=== PATIENT | male | born 1970 | race Caucasian/White ===

== ENCOUNTER 2019-02-15 08:34 | Emergency (ER) | payer OTHER ==
--- NOTE | 2019-02-15 08:54 | EDM.PDOC ---
ED HPI GENERAL MEDICAL PROBLEM - General Chief Complaint: Back Pain or Injury Stated Complaint: BACK AND HIP PAIN Time Seen by Provider: 02/15/19 08:51 - History of Present Illness INITIAL COMMENTS - FREE TEXT/NARRATIVE: 48-year-old male presents emergency room back pain. This is been progressively getting worse over the last couple of days he's had low back pain going down the back of his thighs stops above the knees. No pain or tingling in his feet or lower legs. She denies any fevers or chills no burning or frequency with urination no gastrointestinal symptoms no nausea vomiting constipation diarrhea or abdominal pain. Patient is back issues in the past MRI showed what sounds like bone spurs in the past does not sound like he has any active or past history of radicular symptoms. At this point he denies any loss of bowel or bladder control. Before his back pain started the patient was getting over a sinus cold. He was coughing somewhat with this, however this is resolved but he wonders if the coughing irritated his back. Right Hip Pain Score (Numeric/FACES): 10 - Related Data Allergies Allergy/AdvReac Type Severity Reaction Status Date / Time No Known Allergies Allergy Verified 02/15/19 08:45 Home Meds: Home Meds Cyclobenzaprine [Flexeril] 10 mg PO TID #12 tab 02/15/19 [Rx] Lisinopril [Zestril] 10 mg PO DAILY 02/15/19 [History] Naproxen [Naprosyn] 500 mg PO Q12H #20 tablet 02/15/19 [Rx] Past Medical History Cardiovascular History: Reports: Hypertension Musculoskeletal History: Reports: Other (See Below) Other Musculoskeletal History: tibial fracture - Past Surgical History Musculoskeletal Surgical History: Reports: Other (See Below) Other Musculoskeletal Surgeries/Procedures:: rotator cuff Social & Family History - Tobacco Use Smoking Status *Q: Never Smoker ED ROS GENERAL - Review of Systems Review Of Systems: See Below Constitutional: Reports: No Symptoms Respiratory: Reports: No Symptoms Cardiovascular: Reports: No Symptoms GI/Abdominal: Reports: No Symptoms : Reports: No Symptoms Musculoskeletal: Reports: Back Pain Skin: Reports: No Symptoms Neurological: Reports: No Symptoms ED EXAM,LOWER BACK PAIN/INJURY - Physical Exam Exam: See Below Exam Limited By: Other (The patient is examined standing up for the most part as change of position is very difficult for him.) General Appearance: Alert, Mild Distress (From the discomfort and inability to get into a comfortable position) Head: Atraumatic, Normocephalic Neck: Normal Inspection, Supple, Non-Tender, Full Range of Motion Respiratory/Chest: No Respiratory Distress, Lungs Clear, Normal Breath Sounds, No Accessory Muscle Use, Chest Non-Tender Cardiovascular: Regular Rate, Rhythm, No Edema, No Murmur GI/Abdominal: Normal Bowel Sounds, Soft, Non-Tender Back Exam: Other (No midline vertebral tenderness he has bilateral paraspinous muscle spasm worse on the right compared to the left.). No: CVA Tenderness (L) , CVA Tenderness (R) Skin Exam: Warm, Dry, Intact Course - Vital Signs Last Recorded V/S: Last Vital Signs Temp 36.6 C 02/15/19 08:42 Pulse 109 H 02/15/19 08:42 Resp 16 02/15/19 08:42 BP 175/99 H 02/15/19 09:30 Pulse Ox 100 02/15/19 08:42 - Orders/Labs/Meds Meds: Medications Discontinued Medications Generic Name Dose Route Start Last Admin Trade Name Freq PRN Reason Stop Dose Admin Cyclobenzaprine HCl 10 mg 02/15/19 09:28 02/15/19 09:33 Flexeril PO 02/15/19 09:29 10 mg ONETIME ONE Administration Ketorolac Tromethamine 30 mg 02/15/19 09:25 02/15/19 09:30 Toradol IM 02/15/19 09:26 30 mg ONETIME ONE Administration Lisinopril 10 mg 02/15/19 09:25 02/15/19 09:30 Prinivil PO 02/15/19 09:26 10 mg ONETIME ONE Administration - Re-Assessments/Exams Free Text/Narrative Re-Assessment/Exam: 02/15/19 10:51 Patient is doing much better he is able sit down at this time. He'll be discharged on Naprosyn and Flexeril. 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 Departure - Departure Time of Disposition: 10:52 Disposition: Home, Self-Care 01 Clinical Impression: Low back pain, Spasm of muscle of lower back - Discharge Information Prescriptions: Cyclobenzaprine [Flexeril] 10 mg PO TID #12 tab Naproxen [Naprosyn] 500 mg PO Q12H #20 tablet Referrals: Dilcia Liang PA-C [Primary Care Provider] - Forms: ED Department Discharge Additional Instructions: Return to the emergency room with any questions problems worsening symptoms. Take the medications as directed. Follow-up with your regular provider in 2 days if needed. superintendent logging your blood pressure medication tomorrow. Sepsis Event Note - Evaluation Sepsis Screening Result: No Definite Risk - Focused Exam Vital Signs: Vital Signs Temp Pulse Resp BP BP Pulse Ox 02/15/19 09:30 175/99 H 02/15/19 08:42 36.6 C 109 H 16 137/98 H 100 Date Exam was Performed: 02/15/19 Time Exam was Performed: 10:51
[2019-02-15] MEDS ORDERED: Lisinopril 10 MG Tab PO ONE (09:25)
[2019-02-15] MEDS ORDERED: Ketorolac 30 MG/ML SDV IM ONE (09:25)
[2019-02-15] MEDS ORDERED: Cyclobenzaprine 10 MG Tab PO ONE (09:28)
== END 2019-02-15 11:01 | disposition home or self-care (01) ==
LOC: JD.ED 08:34
DX: M62.830 Muscle spasm of back (principal); I10 Essential (primary) hypertension; Z79.899 Other long term (current) drug therapy
CPT/HCPCS: 96372; 99283; A9270; J1885